=== PATIENT | female | born 1960 | race Caucasian/White ===

== ENCOUNTER 2024-02-24 08:40 | Outpatient (CLI) | payer MEDICAID, SELFPAY ==
--- NOTE | 2024-02-24 09:15 | USCV_ITS ---
Sharon Sims Age: 63 Gender: F : 1960 Exam Date: 02/24/2024 08:49 Ordering Phys: Caitlyn Willard MD ([email or web address]) Technologist: [place] [facility] [place]: ? fluid BP: 130 / 75 HR: 61 Rhythm: Sinus Technical Quality: Adequate MEASUREMENTS (Male / Female) Normal Values 2D ECHO LV Diastolic Diameter PLAX 3.6 cm 4.2 - 5.9 / 3.9 - 5.3 cm IVS Diastolic Thickness 1.2 cm 0.6 - 1.0 / 0.6 - 0.9 cm IVS Systolic Thickness 1.5 cm LVPW Diastolic Thickness 1.1 cm 0.6 - 1.0 / 0.6 - 0.9 cm LVPW Systolic Thickness 1.4 cm LVOT Diameter 2.1 cm LV Ejection Fraction 2D Teich 66.7 % LV Ejection Fraction MOD 4C 70.9 % LV Ejection Fraction MOD 2C 67.6 % LV Ejection Fraction 2C AL 67.4 % LA Diameter 3.4 cm RA Systolic Volume 4C AL 19.6 ml RA Systolic Volume 4C MOD 18.6 ml Aorta at Sinotubular Diameter 2.9 cm IVC Diameter 2.0 cm M-MODE LA Ao Ratio MM 1.4 AV Cusp Separation MM 2.2 cm DOPPLER AV Peak Velocity 160.0 cm/s LVOT Peak Velocity 111.0 cm/s AV Area Cont Eq vti 2.5 cm squared AV Area Cont Eq pk 2.3 cm squared MV Peak Velocity 111.0 cm/s MV Area PHT 3.1 cm squared Mitral E to A Ratio 0.9 TV Peak Velocity 142.0 cm/s TR Peak Velocity 146.0 cm/s TR Peak Gradient 8.5 mmHg TV Peak E Velocity 95.0 cm/s Right Atrial Pressure 3.0 mmHg Pulmonary Artery Systolic Pressu 11.5 mmHg PV Peak Velocity 91.0 cm/s FINDINGS Left Ventricle Normal left ventricular size and systolic function, EF of 70%. No regional wall motion abnormalities. . Mild left ventricular hypertrophy. Grade I/IV diastolic dysfunction (abnormal relaxation filling pattern), normal to mildly elevated filling pressures. Right Ventricle The right ventricle is normal in size and function. Right Atrium The right atrium is normal in size. Left Atrium Mildly increased left atrial size. Mitral Valve Mild mitral valve regurgitation. Aortic Valve Thickened aortic valve. Tricuspid Valve No gross abnormalities noted Pulmonic Valve Pulmonic valve not well visualized. Pericardium Normal pericardium without effusion. Aorta Normal ascending aorta dimension. IVC Normal inferior vena cava. CONCLUSIONS Normal left ventricular size and systolic function, EF of 70%. No regional wall motion abnormalities. Mildly increased left atrial size. Mild mitral valve regurgitation. Thickened aortic valve. There is no pericardial effusion. There are no intracardiac masses. No similar previous studies are available for comparison Dr Darren Hartley MD [facility] (Electronically Signed) Final Date: 26 February 2024 00:12 S
== END 2024-02-24 08:41 | disposition home or self-care (01) ==
LOC: RAD 08:42
PROVIDERS: Family Provider Nurse Practitioner; PCP Nurse Practitioner; Visit Provider Internal Medicine Cardiovascular Disease
DX: I50.30 Unspecified diastolic (congestive) heart failure (principal); R06.02 Shortness of breath
CPT/HCPCS: 93306

== ENCOUNTER 2024-09-19 11:55 | Emergency (ER) | payer MEDICAID, SELFPAY ==
--- NOTE | 2024-09-19 11:58 | XRR_ITS ---
PROCEDURE INFORMATION: Exam: XR Chest Exam date and time: 09/19/2024 12:19 PM Age: 63 years old Clinical indication: Other: Weakness TECHNIQUE: Imaging protocol: Radiologic exam of the chest. Views: 1 view. COMPARISON: No relevant prior studies available. FINDINGS: Lungs: Unremarkable. No consolidation. Pleural spaces: Unremarkable. No pleural effusion. No pneumothorax. Heart/Mediastinum: Unremarkable. No cardiomegaly. Bones/joints: Unremarkable. XR/XR chest 1V portable [id number] IMPRESSION: No acute findings.
--- NOTE | 2024-09-19 11:59 | ECG_ITS ---
[facility] Date: 2024-09-19 Pat Name: Sharon Sims Department: Room: Gender: Female Certified Nurses' Aide: : 1960 Requested By: Marsha You Order Number: [id number] Alberto MD: Darren Hartley M.D. Measurements Intervals [place] Rate: 78 P: -7 VT: 138 QRS: 47 QRSD: 104 T: 105 QT: 387 QTc: 441 Interpretive Statements SINUS RHYTHM NONSPECIFIC T-WAVE ABNORMALITY No previous ECG available for comparison Electronically Signed On 09-19-2024 21:54:05 CDT by Darren Hartley M.D. [email or web address]
[2024-09-19 12:12] VITALS: BP 124/73; PULSE 90; RESP 17; TEMP 36.8; O2SAT 98; BMI 26.2
[2024-09-19 12:16] LABS: Glucose Point of Care 256 mg/dL (70-110)
[2024-09-19 15:12] LABS: Basophils # 0.1 10^3/uL (0.0-0.1); Basophils % 0.5 %; Eosinophils # 0.8 10^3/uL (0.0-0.8); Eosinophils % 5.7 %; Lymphocytes # 3.6 10^3/uL (0.8-4.8); Lymphocytes % 27.1 %; Mean Corpuscular HGB Conc 34.8 g/dL (30-55); Mean Corpuscular Hemoglobin 31.2 pg (27-33); Mean Corpuscular Volume 89.9 fl (85-98); Mean Platelet Volume 9.8 fL (7.4-10.4); Monocytes % 7.8 %; Neutrophils # 7.72 10^3/uL (1.8-7.7); Neutrophils % 58.5 %; Nucleated Red Blood Cells % 0 %; Platelet Count 367 10^3/cmm (157-399); Red Blood Count 4.45 10^6/uL (3.85-5.65); Red Cell Distribution Width 12.5 % (12.1-15.1); White Blood Count 13.19 10^3/uL (3.29-11.43)
[2024-09-19 15:25] LABS: INR 0.87 (0.8-1.2)
--- NOTE | 2024-09-19 15:26 | W.ED.NEUROSD ---
HPI - Neuro Symptoms/Deficit General: Chief Complaint: Neuro Symptoms/Deficit Stated Complaint: stroke like symptoms, going on 2 weeks Time Seen by Provider: 09/19/24 12:58 History of Present Illness: 63-year-old female presents emergency room complaining of a headache and left-sided numbness and weakness she also reports swelling on her face and her hand on the left side. She states has been going on for 2 weeks she feels like she is can pass out frequently but no recent head trauma. She is not on any anticoagulants. Patient ambulates without difficulty she has very abnormal choreatic like movements. She is not on any antipsychotics. She denies any chest or abdominal pain at this time Associated symptoms: Deny chest pain Related Data Home Medications ?Medication ?Instructions ?Recorded ?Confirmed lisinopril 10 mg tablet 10 mg PO DAILY PRN 07/06/19 07/06/19 amlodipine 5 mg-atorvastatin 10 mg 1 tab PO DAILY 01/27/24 01/27/24 tablet aspirin 81 mg tablet,delayed 81 mg PO DAILY 01/27/24 01/27/24 release (Adult Low Dose Aspirin) diclofenac sodium 75 mg 75 mg PO BID 01/27/24 01/27/24 tablet,delayed release losartan 100 mg tablet 100 mg PO DAILY 01/27/24 01/27/24 metoprolol succinate 50 mg capsule 50 mg PO DAILY 01/27/24 01/27/24 sprinkle, ext. release 24 hr tramadol 50 mg tablet 50 mg PO Q4H PRN 01/27/24 01/27/24 Previous Rx's ?Medication ?Instructions ?Recorded amoxicillin 875 mg tablet 875 mg PO BID #20 tabs 07/06/19 promethazine-DM 6.25 mg-15 mg/5 mL 5 ml PO Q6H PRN cough #120 mL 07/06/19 oral syrup Allergies Allergy/AdvReac Type Severity Reaction Status Date / Time lisinopril Allergy Intermediate swelling Verified 01/27/24 16:05 naproxen Allergy Unknown Unknown Verified 01/27/24 16:01 Review of Systems Const: Denies: fever(s) or chills Card: Denies: chest pain Resp: Denies: dyspnea GI: Denies: abdominal pain : Denies: dysuria, urinary frequency or urinary urgency Musc: Denies: neck pain or back pain Skin/Breast: Denies: rash PFSH ED PFSH: Medical History Hypertension Personal history of nicotine dependence Surgical History History of knee surgery Family History Other Smoking Social History Smoking and tobacco/nicotine status: current every day tobacco/nicotine user Second hand smoke exposure: Yes Alcohol intake: never Substance/Drug Use: never Caregiver/support person: No Lives independently: Yes Household members: family Housing: House Marital status: Single service: No Current occupational status: employed Do you think of yourself as: Straight/Heterosexual Current gender identity: Female NIH stroke score NIHSS: Level Of Consciousness - 1a: 0 Level Of Consciousness Questions - 1b: Both Correct Level Of Consciousness Commands - 1c: Both Correct Best Gaze - 2: Normal Visual [place] - 3: No Visual Loss Facial Palsy - 4: Normal Motor Arm Right - 5: No Drift Motor Arm Left - 5: No Drift Motor Leg Right - 6: No Drift Motor Leg Left - 6: No Drift Limb Ataxia - 7: Absent Sensory - 8: Normal Best Language - 9: No Aphasia Dysarthia - 10: Normal Extinction And Inattention - 11: 0 Score: Total Score: 0 Physical Exam Const: GENERAL APPEARANCE: cooperative ORIENTATION/CONSCIOUSNESS: Yes awake, Yes oriented to person, Yes oriented to place and Yes oriented to time HENMT: COMMON NORMALS: normocephalic, atraumatic and hearing grossly normal bilaterally HEAD & SCALP: normocephalic and atraumatic Resp: COMMON NORMALS: normal respiratory effort, No retractions, No use of accessory muscles and clear to auscultation bilaterally AUSCULTATION: clear to auscultation bilaterally Cardio: COMMON NORMALS: regular rate, regular rhythm and No murmurs present (Cardio) RATE: regular rate RHYTHM: regular rhythm GI: COMMON NORMALS: Soft to palpation and No hepatosplenomegaly present AUSCULTATION: Yes normoactive bowel sounds PALPATION: Yes Soft to palpation, No Tenderness to palpation present (GI), No Guarding due to palpation present (GI) and Yes No hepatosplenomegaly present Extremity: COMMON NORMALS: normal to inspection, capillary refill normal, no clubbing, cyanosis or edema, no calf tenderness and no pedal edema Neuro: SENSORIUM/ORIENTATION: Yes oriented to person, Yes oriented to place and Yes oriented to time Skin: COMMON NORMALS: no rashes or lesions noted GENERAL SKIN EXAM: no rashes or lesions noted Course Vital Signs: Vital signs: Vital Signs Temperature 98.3 F 09/19/24 12:12 Pulse Rate 79 09/19/24 16:07 Respiratory Rate 16 09/19/24 16:07 Blood Pressure 135/82 09/19/24 15:43 Pulse Oximetry 96 09/19/24 16:07 Oxygen Delivery Me thod Room Air 09/19/24 12:12 MDM - Neuro Symptoms/Deficit Medical Decision Making No focal neurologic deficits noted patient has had the symptoms for 2 weeks she always has leg tardive dyskinesia like symptoms. He is not on any medications that would contribute to this at this time no acute findings plan will discharge patient home if has persistent symptoms follow-up with her primary care doctor Medical Records I reviewed the patient's medical records. Lab Data I reviewed the patient's lab results. 09/19/24 15:04 09/19/24 15:04 Radiology Impressions Chest X-Ray 09/19/24 11:58 IMPRESSION: No acute findings. Head CT 09/19/24 15:31 IMPRESSION: 1. No acute intracranial findings. 2. Blowout fracture medial right orbit. Probably chronic unless there is a history of recent trauma to the right orbit. Laboratory Results WBC 13.19 10^3/uL (3.29-11.43) H 09/19/24 15:04 RBC 4.45 10^6/uL (3.85-5.65) 09/19/24 15:04 Hgb 13.90 g/dL (11.27-16.99) 09/19/24 15:04 Hct 40.0 % (36-47) 09/19/24 15:04 MCV 89.9 fl (85-98) 09/19/24 15:04 MCH 31.2 pg (27-33) 09/19/24 15:04 MCHC 34.8 g/dL (30-55) 09/19/24 15:04 RDW 12.5 % (12.1-15.1) 09/19/24 15:04 Plt Count 367 10^3/cmm (157-399) 09/19/24 15:04 MPV 9.8 fL (7.4-10.4) 09/19/24 15:04 Neut % (Auto) 58.5 % 09/19/24 15:04 Lymph % (Auto) 27.1 % 09/19/24 15:04 [place] % (Auto) 7.8 % 09/19/24 15:04 Eos % (Auto) 5.7 % 09/19/24 15:04 Baso % (Auto) 0.5 % 09/19/24 15:04 Neut # (Auto) 7.72 10^3/uL (1.8-7.7) H 09/19/24 15:04 Lymph # (Auto) 3.6 10^3/uL (0.8-4.8) 09/19/24 15:04 [place] # (Auto) 1.0 10^3/uL (0.2-0.9) H 09/19/24 15:04 Eos # (Auto) 0.8 10^3/uL (0.0-0.8) 09/19/24 15:04 Baso # (Auto) 0.1 10^3/uL (0.0-0.1) 09/19/24 15:04 Nucleated RBC % (auto) 0 % 09/19/24 15:04 Nucleated RBCs # 0.0 /100WBC 09/19/24 15:04 PT 12.40 SECONDS (12.1-14.9) 09/19/24 15:04 INR 0.87 (0.8-1.2) 09/19/24 15:04 Sodium 135 mmol/L (136-145) L 09/19/24 15:04 Potassium 3.9 mmol/L (3.5-5.1) 09/19/24 15:04 Chloride 100 mmol/L (98-107) 09/19/24 15:04 Carbon Dioxide 25 mmol/L (22-29) 09/19/24 15:04 Anion Gap 13.9 (5-19) 09/19/24 15:04 BUN 14 mg/dL (8-23) 09/19/24 15:04 Creatinine 0.8 mg/dL (0.5-0.9) 09/19/24 15:04 GFR Calculation 72.9 mL/min (90-130) L 09/19/24 15:04 Glucose 167 mg/dL (65-115) H 09/19/24 15:04 POC Glucose 256 mg/dL (70-110) H 09/19/24 12:12 Calculated Osmolality 284 mOsm/kg (285-295) L 09/19/24 15:04 Calcium 9.3 mg/dL (8.5-10.5) 09/19/24 15:04 Total Bilirubin 0.4 mg/dL (0.15-1.2) 09/19/24 15:04 AST 13 U/L (0-32) 09/19/24 15:04 ALT 11 U/L (0-33) 09/19/24 15:04 Alkaline Phosphatase 133 U/L (35-105) H 09/19/24 15:04 Total Protein 6.7 g/dL (6.6-8.7) 09/19/24 15:04 Albumin 4.4 g/dL (3.5-5.2) 09/19/24 15:04 Globulin 2.3 g/dL (1.3-4.6) 09/19/24 15:04 Urine Color Yellow (Yellow) 09/19/24 15:22 Urine Appearance Clear (CLEAR) 09/19/24 15:22 Urine pH 5.5 (5-7) 09/19/24 15:22 Ur Specific [place] 1.025 (1.005-1.030) 09/19/24 15:22 Urine Protein Negative (Negative) 09/19/24 15:22 Urine Glucose (UA) Negative (Normal) 09/19/24 15:22 Urine Ketones Trace (Negative) 09/19/24 15:22 Urine Blood Negative (Negative) 09/19/24 15:22 Urine Nitrate Negative (Negative) 09/19/24 15: Urine Bilirubin Negative (Negative) 09/19/24 15: Urine Urobilinogen 1.0 mg/dL (Negative) 09/19/24 15:22 Ur Leukocyte Esterase Negative (Negative) 09/19/24 15:22 Urine RBC 0-2 /hpf (0-2) 09/19/24 15:22 Urine WBC 0-5 /hpf (0-5) 09/19/24 15:22 Ur Squamous Epith Cells 0-5 /hpf (0-5) 09/19/24 15:22 Amorphous Sediment Not Reportable 09/19/24 15:22 Urine Bacteria None seen /hpf (NONE) 09/19/24 15:22 Hyaline Casts 2.87 /lpf 09/19/24 15:22 Urine Opiates Screen Negative ng/mL (Negative) 09/19/24 15:22 Ur Barbiturates Screen Negative ng/mL (Negative) 09/19/24 15:22 Ur Phencyclidine Scrn Negative ng/mL (Negative) 09/19/24 15:22 Ur Amphetamines Screen Negative ng/mL (Negative) 09/19/24 15:22 U Benzodiazepines Scrn Negative ng/mL (Negative) 09/19/24 15:22 Urine Cocaine Screen Negative ng/mL (Negative) 09/19/24 15:22 U Marijuana (THC) Screen Negative ng/mL (Negative) 09/19/24 15:22 All radiology interpretation(s) finalized by discharge EKG Data EKG 1: Interpretation: EKG 09/19/2024 1552 sinus rhythm no acute ST changes rate of 78 parable 138 QTc 441 Discharge Plan Discharge Patient Disposition: Home Clinical Impression: Left-sided weakness Condition: Stable Prescriptions: No Action lisinopril 10 mg tablet 10 mg PO DAILY PRN amoxicillin 875 mg tablet 875 mg PO BID Qty: 20 0RF promethazine-DM 6.25-15 mg/5 mL syrup 5 ml PO Q6H PRN (Reason: cough) Qty: 120 0RF losartan 100 mg tablet 100 mg PO DAILY amlodipine-atorvastatin 5-10 mg tablet 1 tab PO DAILY metoprolol succinate 50 mg capsule,sprinkle,ER 24hr 50 mg PO DAILY diclofenac sodium 75 mg tablet,delayed release (DR/EC) 75 mg PO BID tramadol 50 mg tablet 50 mg PO Q4H PRN aspirin [Adult Low Dose Aspirin] 81 mg tablet,delayed release (DR/EC) 81 mg PO DAILY Discharge Orders: Discharge ED (Routine); Ordered 09/19/24 Ordered By: Vinay Stevenson Referrals: Caballero,Niurka, LUMBER PRESS OPERATOR [Primary Care Provider, Nurse Practitioner] Discharge Diet: Usual diet Discharge Activity: Resume usual activity Patient Instructions: Opioid Safety, Pain Management Activity Restrictions/Additional Instructions: [facility] you [facility] for your healthcare needs today. It is very important that you follow up as instructed or that you return to the Emergency Department should you have concerns or if your condition changes or worsens in any way. You are seen in the emergency room with complaints of weakness in the left side for 2 weeks. Your exam was normal. CT of your head was negative. Continue your current medications and follow-up with primary care doctor if your symptoms persist. Continue to take aspirin daily Print Language: Cuban Coding Level of Care Code ED Private Duty Rn for Marie Liu
--- NOTE | 2024-09-19 15:31 | CTR_ITS ---
PROCEDURE INFORMATION: Exam: CT Head Without Contrast Exam date and time: 09/19/2024 4:02 PM Age: 63 years old Clinical indication: Weakness, extremity; Left; Additional info: Left-sided weakness x 2 weeks TECHNIQUE: Imaging protocol: Computed tomography of the head without contrast. Radiation optimization: All CT scans at this facility use at least one of these dose optimization techniques: automated exposure control; mA and/or kV adjustment per patient size (includes targeted exams where dose is matched to clinical indication); or iterative reconstruction. COMPARISON: No relevant prior studies available. RADIATION DOSE METRICS: Total DLP (mGy-cm): 1044.18 FINDINGS: Brain: Chronic lacunar infarct right basal ganglia region. Otherwise, unremarkable. No hemorrhage. Unremarkable white matter. No mass effect. No CT evidence of acute infarct. Cerebral ventricles: No ventriculomegaly. Paranasal sinuses: Visualized sinuses are unremarkable. No fluid levels. Mastoid air cells: Visualized mastoid air cells are well aerated. Auditory system: Clear middle ear cavities bilaterally. Bones: Blowout fracture medial right orbit. Otherwise, unremarkable. Soft tissues: Unremarkable. CT/CT head wo con* [id number] IMPRESSION: 1. No acute intracranial findings. 2. Blowout fracture medial right orbit. Probably chronic unless there is a history of recent trauma to the right orbit.
[2024-09-19 15:32] LABS: Alanine Aminotransferase 11 U/L (0-33); Albumin Level 4.4 g/dL (3.5-5.2); Alkaline Phosphatase 133 U/L (35-105); Anion Gap 13.9 (5-19); Aspartate Amino Transferase 13 U/L (0-32); Blood Urea Nitrogen 14 mg/dL (8-23); Calcium 9.3 mg/dL (8.5-10.5); Carbon Dioxide 25 mmol/L (22-29); Chloride 100 mmol/L (98-107); Creatinine Clr Calc Pharmacy 67.9577; Globulin 2.3 g/dL (1.3-4.6); Glomerular Filtration Rate 72.9 mL/min (90-130); Glucose 167 mg/dL (65-115); Osmolality Calculated 284 mOsm/kg (285-295); Potassium 3.9 mmol/L (3.5-5.1); Sodium 135 mmol/L (136-145); Total Bilirubin 0.4 mg/dL (0.15-1.2); Total Protein 6.7 g/dL (6.6-8.7)
[2024-09-19 15:40] LABS: Bilirubin Urine Negative (Negative); Blood Urine Negative (Negative); Glucose Urine UA Negative (Normal); Ketones Urine Trace (Negative); Leukocyte Esterase Urine Negative (Negative); Nitrate Urine Negative (Negative); Protein Urine Negative (Negative); Specific Gravity, Urine 1.025 (1.005-1.030); Urine Appearance Clear (CLEAR); Urine Color Yellow (Yellow); pH Urine 5.5 (5-7)
[2024-09-19 15:43] VITALS: BP 135/82; PULSE 80; RESP 18; O2SAT 98
[2024-09-19 15:45] LABS: Add Urine Microscopic? YES; Bacteria Urine None Seen /hpf; Hyaline Casts Urine 2.87 /lpf; RBC Urine 0-2 /hpf (0-2); Squamous Epithelial Cell Urine 0-5 /hpf (0-5); WBC Urine 0-5 /hpf (0-5)
[2024-09-19 15:55] LABS: Amphetamines Screen Urine Negative (Negative); Barbiturates Screen Urine Negative (Negative); Benzodiazepines Screen Urine Negative (Negative); Cocaine Screen Urine Negative (Negative); Opiate Screen Urine Negative (Negative); PCP Screen Urine Negative (Negative); THC Screen Urine Negative (Negative)
[2024-09-19 16:07] VITALS: PULSE 79; RESP 16; O2SAT 96
== END 2024-09-19 17:11 | disposition home or self-care (01) ==
PROVIDERS: Emergency Medicine; Emergency Provider Family Medicine; PCP Nurse Practitioner Family
DX: R53.1 Weakness (principal); Z79.82 Long term (current) use of aspirin; Z72.0 Tobacco use; I10 Essential (primary) hypertension
CPT/HCPCS: 36415; 36416; 70450; 71045; 80053; 80306; 81001; 82962; 85025; 85610; 93005; 99285